=== PATIENT | female | born 1985 | race Caucasian/White ===

== ENCOUNTER → 2017-09-06 | Outpatient (CLI) | payer BC ==
[~2017-09-06] MED LIST: ASCO500C3 PO; BCPILLS PO; IBUP-1050 PO; MTR600X PO; PRENTAB26 PO
[2017-09-06 16:42] LABS: HEMATOCRIT 40.5 % (37-47); MEAN CELL VOLUME 93.1 fL (80-100); MEAN CORPUSCULAR HEMOGLOBIN 31.5 pg (25-34); MEAN CORPUSCULAR HGB CONC 33.8 g/dl (32-36); MEAN PLATELET VOLUME 10.3 fL (7.4-10.4); PLATELET COUNT 203 K/uL (130-400); RED BLOOD COUNT 4.35 M/uL (4.2-5.4); WHITE BLOOD COUNT 8.17 K/uL (4.8-10.8)
== END | disposition home or self-care (01) ==
LOC: C.LAB 15:27
PROVIDERS: ATTEND Obstetrics & Gynecology
DX: Z01.818 Encounter for other preprocedural examination (principal)

== ENCOUNTER 2017-09-10 05:28 | Day surgery (SDC) | payer BC ==
[2017-09-09 14:09] VITALS: BMI 31.0
[~2017-09-10] VITALS: Ht 165.1 cm; Wt 86.4 kg
[~2017-09-10 05:28] MED LIST changes: -ASCO500C3 PO; -BCPILLS PO; -IBUP-1050 PO; -MTR600X PO
[2017-09-10 05:49] VITALS: BP 114/60; PULSE 75; TEMP 36.9; O2SAT 95; Ht 165.1 cm; Wt 86.4 kg
[2017-09-10] MEDS ORDERED: LACTATED RINGER'S 1000ML 1,000 ML IV SCH ×2 (06:00→06:30)
[2017-09-10] MEDS ORDERED: EpHEDrine SULFATE INJ 50 MG/ML AMP IV PRN (06:45)
[2017-09-10] MEDS ORDERED: FENTANYL CITRATE INJ 50 MCG/1 ML 2 ML VIAL IV PRN (06:45)
[2017-09-10] MEDS ORDERED: PROMETHAZINE HCL INJ 12.5 MG in SODIUM CHLORIDE 0.9% 50ML 50 ML IV PRN (06:45)
[2017-09-10] MEDS ORDERED: ONDANSETRON INJ 2 MG/ML 2 ML VIAL IV PRN ×2 (06:45→08:00)
[2017-09-10] MEDS ORDERED: HYDROmorphone INJ 1 MG/ML SYR IV PRN (06:45)
[2017-09-10] MEDS ORDERED: ATROPINE SULFATE 0.1 MG/ML 5ML SYR IV PRN (06:45)
[2017-09-10] MEDS ORDERED: FENTANYL CITRATE INJ 50 MCG/1 ML 2 ML VIAL ONE (06:48)
[2017-09-10] MEDS ORDERED: KETOROLAC TROMETHAMINE 30 MG/ML VIAL ONE (06:48)
[2017-09-10] MEDS ORDERED: DEXAMETHASONE SOD INJ 4 MG/ML VIAL ONE (06:48)
[2017-09-10] MEDS ORDERED: LIDOCAINE HCL 2% 2 ML VIAL (20MG/ML) ONE (06:48)
[2017-09-10] MEDS ORDERED: PROPOFOL IV EMULSION 10 MG/ML 20 ML VIAL IV ONE (06:48)
[2017-09-10] MEDS ORDERED: ONDANSETRON INJ 2 MG/ML 2 ML VIAL ONE ×2 (06:48→07:36)
[2017-09-10] MEDS ORDERED: MIDAZOLAM HCL 1 MG/ML 2ML VIAL ONE (06:48)
[2017-09-10] MEDS ORDERED: METHYLERGONOVINE MALEATE 0.2 MG/ML AMP ONE (06:58)
[2017-09-10] MEDS ORDERED: SILVER NITR/POTASSIUM NITRATE 10 APPLICATOR PACK ONE (07:04)
--- NOTE | 2017-09-10 07:14 | History & Physical Bridge Note ---
H&P Re-Evaluation Bridge Note: I have examined the patient, reviewed the History & Physical and in the interval since the performance of the History & Physical I have noted the following changes of clinical significance: No changes noted
[2017-09-10] MEDS ORDERED: MTR600X PO (07:51)
[2017-09-10] MEDS ORDERED: OXYTOCIN INJ 10 UNITS/ML VIAL ONE (07:53)
--- NOTE | 2017-09-10 07:53 | Discharge Instructions ---
Discharge Instructions Date of Service Sep 10, 2017. Admission Reason for Admission: Missed After 6+ Weeks Discharge Discharge Diagnosis / Problem: missed Discharge Goals Goal(s): Routine recovery after surgery Activity Recommendations Activity Limitations: as noted below Lifting Limitations: no more than 10 pounds Exercise/Sports Limitations: gradually increase as tolerated May Resume Sexual Activity: after follow-up appointment Shower/Bathe: no limitations Driving or Machine Use: resume 1 day after discharge . Instructions / Follow-Up Instructions / Follow-Up ACTIVITY RECOMMENDATIONS: * Avoid tampons, douching, hot tubs, pools, and intercourse until bleeding has stopped. * May shower as usual. * No strenuous activity for 24-48 hours. After 24-48 hours, you may do anything you feel like doing (driving and sports are okay). SPECIAL CARE INSTRUCTIONS: Special Diet: * Mild nausea may occur in the immediate post-operative period. * Take clear liquids such as tea, cola or bouillon until all nausea has subsided; you may then resume your normal diet. Special Care: * Light bleeding and vaginal spotting can last from a few days to 3-4 weeks. Call your doctor if bleeding becomes heavier than the heaviest part of your period. * Check your temperature twice a day for one week. If it goes above 100.4 degrees Fahrenheit (38.0 Celsius), notify your doctor. * Call your doctor's office for an appointment for 6 weeks after your surgery. FOLLOW-UP VISIT: Call your doctor's office for an appointment for 6 weeks after your surgery. Current Hospital Diet Patient's current hospital diet: Discharge Diet Recommended Diet: Regular Diet Procedures Procedures Performed: Dilation and Evacuation of Uterus Pending Studies Studies pending at discharge: no Medical Emergencies . Who to Call and When: Medical Emergencies: If at any time you feel your situation is an emergency, please call 911 immediately. . Non-Emergent Contact Non-Emergency issues call your: Primary Care Provider . . "Provider Documentation" section prepared by Blanco Oropeza. . VTE Core Measure Inpt VTE Proph given/why not?: Treatment not indicated
[2017-09-10] MEDS ORDERED: SODIUM CHLORIDE 0.9% 1000ML 1,000 ML IV SCH (07:55)
--- NOTE | 2017-09-10 07:55 | [facility] Post Operative Brief Note ---
Immediate Operative Summary Operative Date Sep 10, 2017. Pre-Operative Diagnosis missed Post-Operative Diagnosis missed Procedure(s) Performed Dilation and Evacuation of Uterus Surgeon Dr. Oropeza Hardwood Floor Installer Surgeon(s) none Estimated Blood Loss 25mL Findings POC's Fluids (cc crystalloids) LR 900 ml. Specimens A: products of conception Drains none Anesthesia LMA Complication(s) None Disposition Recovery Room / PACU
[2017-09-10] MEDS ORDERED: KETOROLAC TROMETHAMINE 30 MG/ML VIAL IV. PRN (08:00)
[2017-09-10] MEDS ORDERED: OXYCODONE/ACETAMINOPHEN 5-325 TAB PO PRN (08:00)
[2017-09-10] MEDS ORDERED: IBUPROFEN 600 MG TAB PO PRN (08:00)
[2017-09-10] MEDS ORDERED: MoRPHine SULFATE 2 MG/ML CARP IV PRN (08:00)
[2017-09-10] MEDS ORDERED: HYDROCODONE/ACETAMOPHEN 5/325MG TAB PO PRN (08:00)
--- NOTE | 2017-09-10 08:30 | Anesthesiology Progress Note ---
Anesthesia Post Op Note Date & Time Sep 10, 2017 at 08:30 Vital Signs Pain Intensity: 0 Vital Signs Past 12 Hours Date Time Temp Pulse Resp B/P (MAP) Pulse Ox O2 Delivery O2 Flow Rate FiO2 09/10/17 08:25 59 15 09/10/17 08:25 59 15 110/67 97 09/10/17 08:20 61 15 09/10/17 08:20 57 15 114/61 96 09/10/17 08:15 55 15 09/10/17 08:15 55 15 106/60 97 09/10/17 08:10 59 14 09/10/17 08:10 58 14 110/59 95 09/10/17 08:05 63 15 09/10/17 08:05 62 15 111/61 96 09/10/17 08:00 81 15 09/10/17 08:00 81 15 116/64 95 09/10/17 07:55 100 19 09/10/17 07:55 101 19 134/77 99 09/10/17 07:50 104 16 125/58 97 09/10/17 07:50 105 16 09/10/17 07:50 37.3 95 14 125/58 97 Oxymask 10 09/10/17 05:49 36.9 75 16 114/60 (78) 95 Room Air Notes Mental Status: alert / awake / arousable, participated in evaluation Pt Amnestic to Procedure: Yes Nausea / Vomiting: adequately controlled Pain: adequately controlled Airway Patency, RR, SpO2: stable & adequate BP & HR: stable & adequate Hydration State: stable & adequate Anesthetic Complications: no major complications apparent
--- NOTE | 2017-09-10 08:38 | OPERATIVE REPORT ---
DATE OF OPERATION: 09/10/2017 PREOPERATIVE DIAGNOSIS: Missed . POSTOPERATIVE DIAGNOSIS: Same. PROCEDURE: D&E. SURGEON: Dr. Oropeza. STAVE BLOCK SPLITTER: None. ANESTHESIA: LMA anesthesia. COMPLICATIONS: None. FINDINGS: Products of conception. CLINICAL HISTORY: The patient is a 31-year-old white female 1, para 0 at 12 weeks by dates approximately 6+ weeks by ultrasound with a missed diagnosed with no heart tones. The patient was consented for D&E in the office by Dr. Rendon. The patient was seen this morning consent was obtained. Time out was called prior to the start of the procedure. OPERATION AND FINDINGS: DESCRIPTION OF PROCEDURE: After satisfactory general LMA anesthesia, the patient was prepped and draped in usual sterile fashion. Red rubber catheter was then used to empty the bladder of approximately 200 mL of clear urine. Exam under anesthesia revealed the uterus to be retroverted approximately 10 week's size. Uterus was sounded to 10 cm. After a weighted speculum was placed into the posterior vault of the vagina single tooth tenaculum was placed on the anterior lip of the cervix. The cervix was then progressively dilated with Hegar dilators. A #8 curved curet was inserted into the uterine cavity curetting and suctioning out products of conception. At the end of this procedure, the sharp endometrial curet was introduced curetting out minimal amounts of tissue. The EBL was 25 mL. No active bleeding was noted. Pitocin was started in the IV bag after the procedure. All remaining instruments were removed. Final sponge, needle and instrument count were found to be correct. The patient was then placed supine on a stretcher. EBL 25 mL. She was taken to recovery room in stable condition where she will be discharged later as an outpatient. I attest to the content of the Intraoperative Record and any orders documented therein. Any exception s are noted below.
[2017-09-10 08:40] VITALS: BP 123/72; PULSE 64; TEMP 37.2; O2SAT 97
[2017-09-10 09:00] VITALS: BP 117/64; PULSE 70; O2SAT 100
== END 2017-09-10 09:22 | disposition home or self-care (01) ==
LOC: C.ACU 05:28
PROVIDERS: ATTEND Obstetrics & Gynecology
DX: O02.1 Missed abortion (principal); Z88.1 Allergy status to other antibiotic agents; Z83.3 Family history of diabetes mellitus; Z68.32 Body mass index [BMI] 32.0-32.9, adult; E66.9 Obesity, unspecified

== ENCOUNTER 2019-07-10 11:44 | Inpatient (IN) ==
[2019-07-10] MEDS ORDERED: OXYTOCIN 30 UNITS/500 ML BAG IV PRN (12:55)
[2019-07-10] MEDS ORDERED: PENICILLIN G POTASSIUM 6 MU in DEXTROSE 5% 250 ML IV ONE (13:15)
[2019-07-10] MEDS ORDERED: ONDANSETRON INJ 2 MG/ML 2 ML VIAL IV PRN (13:17)
[2019-07-10] MEDS ORDERED: BUTORPHANOL TARTRATE 1 MG/ML VIAL IV PRN (13:17)
[2019-07-10 13:23] LABS: Hematocrit (blood only) 33.7 % (37-47); Hemoglobin 11.7 g/dL (12.0-16.0); Mean Corpuscular Volume 91.6 fL (80-100); Mean Platelet Volume 10.4 fL (7.4-10.4); Platelet Count 166 K/uL (130-400); RDW Coefficient of Variation 13.4 % (11.5-14.5); RDW Standard Deviation 44.5 fL (36.4-46.3); Red Blood Count 3.68 M/uL (4.2-5.4); White Blood Count 13.77 K/uL (4.8-10.8)
[2019-07-10 13:41] LABS: Mean Corpuscular Hgb Conc 34.7 g/dL (32-36)
--- NOTE | 2019-07-10 14:33 | History & Physical Report ---
Date of Service July 10, 2019 Assessment & Plan (1) premature rupture of membranes (PPROM) with unknown onset of labor: 33 yo at 35.1 wks with PPROM, not in labor, FHR reassuring, GBS unknown VSS Afebrile Contractions + GBS collected Plan to observe, monitor, PCN, desires expectant management for now, then induction of labor if no cervical change All questions were answered History of Present Illness Chief Complaint: Patient is a 33 yo at 35.1 wks who has been feeling LOF/ gushes since 10 am It has malvin clear No VB Irregular ctxs, getting more painful Pain is 4/10 No fever/ chills/ CORTEZ/ Change in vision/ N&V +FM Her has been complicated by 1) GDMA1: diagnosed 2 weeks ago, normal FS 2) Polyhydramnios, LGA, 7 lb 14 oz last week 3) Recurrent SAB 4) PPROM 5) Unknown GBS Primary Care Provider: Jaswant Taylor MD Allergies Allergy/AdvReac Type Severity Reaction Status Date / Time amoxicillin AdvReac Unknown nausea/vomi Verified 07/10/19 11:48 ting Home Medications Home Medications Medication Instructions Recorded Confirmed Type [id number] oil 2 tabs PO DAILY #0 tab 09/09/17 07/10/19 History [ Gummy] ascorbic acid (vitamin C) [Vitamin 500 mg PO DAILY 12/01/18 07/10/19 History C] docusate sodium [Colace] 100 mg PO BID 07/10/19 07/10/19 History magnesium hydroxide [Milk of 5 ml PO HS PRN 07/10/19 07/10/19 History Magnesia] Patient History Medical History Gestational diabetes Endometritis (Acute) Finished antibiotics 11/22/18 History of rectal bleeding (Acute) Irritable bowel syndrome (IBS) (Acute) Pseudotumor cerebri (Acute) Miscarriage within last 12 months Surgical History History of colonoscopy (Acute) History of dilation and curettage (Acute) D&E x2 in past year Social History Preferred Language: Bolivian Communication Ability: Effective Life Skills Trainer Required: No Beliefs That Will Affect Care: None marital status: Single Current Living Situation: Significant Other Current Living Situation Comment: fiance Other Information That Helps Us Care for You: No Feels Safe at Home: Yes Safety Concerns: Feels Safe At This Time Smoking Status: Never smoker Second Hand Exposure: Yes (occasional- once weekly) ; Hx Alcohol Use: No Hx Substance Use: No OB History 4 SAB, 2 D&C FRAUD EXAMINER History No h/o STD's Review of Systems All systems reviewed & are unremarkable except as noted in HPI & below Physical Exam Constitutional: WD/WN, vitals as above well developed and well nourished Comfortable Gastrointestinal (Abdomen): Abd: soft, NT, Gravid Bed side US: Vertex, FHR 150'S, FM's and breathing seen Genitourinary: SSE: pooling in vagina, grossly ruptured, nitrazine + Cervix: ft, 50%/ -4, ballotable Results & Data Vital Signs (Past 12 Hours) Vital Signs Temp Resp 07/10/19 13:44 36.9 C 07/10/19 12:12 37.1 C 20 Code Status & VTE Plan VTE Prophylaxis Plan VTE Prophylaxis will be ordered: Yes Monitoring External Monitor Categ I Tocodynamometer Irregular ctxs q2-5 min
[2019-07-10] MEDS: LACTATED RINGER'S 1,000 ML IV PRN ×2 (14:41→23:41)
[2019-07-10] MEDS ORDERED: DINOPROSTONE 10 MG INSERT PV ONE (16:14)
--- NOTE | 2019-07-10 16:16 | Obstetrical Progress Note ---
Date of Service July 10, 2019 Subjective Patient is reevaluated She feels back pain, not much abdominal pain, not sure ctxs +LOF, clear +FM VE; tight 1 cm/ 50%/ -4, posterior FHR categ I [place]: irregular ctxs Discussed IOL/ Augmentation of ctxs Discussed pitocin vs po cytotec vs cervidil Plan Cervidil for cervical ripening/ IOL SCD's for DVRT prevention Continue to monitor Results & Data Vital Signs (Past 12 Hours) Vital Signs Temp Pulse Resp BP 07/10/19 15:00 103 H 115/59 L 07/10/19 14:59 36.8 C 20 07/10/19 13:44 36.9 C 07/10/19 12:12 37.1 C 20 124/68
[2019-07-10] MEDS: PENICILLIN G POTASSIUM 3 MU in DEXTROSE 5% 100 ML IV PRN ×2 (18:41→22:37)
[2019-07-11] MEDS ORDERED: OXYTOCIN 30 UNITS/500 ML BAG IV PRN (00:08)
--- NOTE | 2019-07-11 00:11 | Obstetrical Progress Note ---
Date of Service July 11, 2019 Subjective Patient is reevaluated Cervidil came out about an hour ago She did not have much ctxs with that Still leaking abundant amount if clear fluids +FM's VSS Afebrile FHR categ I VE; unchanged, 1 cm/ 50%/ -4, posterior Plan for pitocin, discussed pain management, Stadol and epidural as needed All questions were answered Results & Data Vital Signs (Past 12 Hours) Vital Signs Temp Pulse Resp BP 07/10/19 23:09 36.8 C 86 18 118/56 L 07/10/19 23:06 36.8 C 86 18 118/56 L 07/10/19 19:37 114 H 111/63 07/10/19 19:15 36.8 C 07/10/19 17:40 36.8 C 07/10/19 15:00 103 H 115/59 L 07/10/19 14:59 36.8 C 20 07/10/19 13:44 36.9 C 07/10/19 12:12 37.1 C 20 124/68
[2019-07-11] MEDS: PENICILLIN G POTASSIUM 3 MU in DEXTROSE 5% 100 ML IV PRN ×3 (02:34→10:32)
[2019-07-11] MEDS ORDERED: BUPIVACAINE 0.25% 30 ML VIAL ONE (07:20)
[2019-07-11] MEDS ORDERED: ePHEDrine sulfate 50 MG/ML AMP ONE (07:20)
[2019-07-11] MEDS ORDERED: fentaNYL 2MCG/ML ROPIV 1.25MG/ML 100 ML BAG EPI ONE (07:21)
[2019-07-11] MEDS ORDERED: fentaNYL citrate 100 MCG/2 ML VIAL ONE (07:21)
[2019-07-11] MEDS: LACTATED RINGER'S 1,000 ML IV PRN ×2 (08:24→13:40)
--- NOTE | 2019-07-11 08:54 | Anesthesiology Consultation ---
Date of Service July 11, 2019 Assessment & Plan (1) Encounter for pre-operative examination: Chart Review Chart Review: Patient NOT seen in Pre Admission Testing and Acceptable Risk for Labor Epidural Consults Requested none ASA ASA3 Proposed Anesthesia Anesthesia Type: CSE History Height/Weight Height: 5 ft 5 in Weight: 102.058 kg Allergies Allergy/AdvReac Type Severity Reaction Status Date / Time amoxicillin AdvReac Unknown nausea/vomi Verified 07/10/19 11:48 ting Medications Home Medications Medication Instructions Recorded Confirmed Last Taken [id number] oil 2 tabs PO DAILY #0 tab 09/09/17 07/10/19 07/09/19 22:00 [ Gummy] ascorbic acid (vitamin C) [Vitamin 500 mg PO DAILY 12/01/18 07/10/19 07/09/19 22:00 C] docusate sodium [Colace] 100 mg PO BID 07/10/19 07/10/19 07/08/19 22:00 magnesium hydroxide [Milk of 5 ml PO HS PRN 07/10/19 07/10/19 Unknown Magnesia] Active Medications Generic Name Dose Route Start Last Admin Trade Name Freq PRN Reason Stop Dose Admin Butorphanol Tartrate 1 mg 07/10/19 13:17 07/11/19 03:58 Stadol IV 08/09/19 13:16 1 mg Q3HWA PRN Administration Pain Lactated Ringer's 1,000 mls @ 150 mls/hr 07/10/19 12:55 07/11/19 08:24 Lr IV 07/12/19 12:54 999 mls/hr .Q6H40M PRN Administration L&D Protocol Protocol Penicillin G Potassium 3 mu/ 106 mls @ 100 mls/hr 07/10/19 12:55 07/11/19 06:34 Dextrose IV 07/20/19 12:54 100 mls/hr Q4H PRN Administration Give until delivery Oxytocin 30 units in 500 mls @ 6 mls/hr 07/11/19 00:08 07/11/19 07:08 Pitocin IV 07/13/19 00:07 0.36 units/hr .Q24H PRN 6 mls/hr Labor Induction/Augmentation Titration Protocol 0.36 UNITS/HR Past Medical History Medical History Gestational diabetes Endometritis (Acute) Finished antibiotics 11/22/18 History of rectal bleeding (Acute) Irritable bowel syndrome (IBS) (Acute) Pseudotumor cerebri (Acute) Miscarriage within last 12 months Past Surgical History Surgical History History of colonoscopy (Acute) History of dilation and curettage (Acute) D&E x2 in past year Social History Smoking Status: Never smoker Hx Alcohol Use: No Alcohol type: beer alcohol intake frequency: a few times a month Hx Substance Use: No Physical Exam Vital Signs Last Vital Signs Temp 36.8 C 07/11/19 07:15 Pulse 87 07/11/19 08:48 Resp 18 07/11/19 07:15 BP 104/53 L 07/11/19 08:48 Pulse Ox 97 07/11/19 08:47 Testing Laboratory Results 07/10/19 13:07 07/10/19 23:22 POC Glucose 76
[2019-07-11] MEDS ORDERED: NALBUPHINE HCL INJ 10 MG/ML AMP IV PRN ×2 (08:57→16:50)
[2019-07-11] MEDS ORDERED: fentaNYL 2MCG/ML ROPIV 1.25MG/ML 100 ML BAG EPI PRN (08:57)
[2019-07-11] MEDS ORDERED: ePHEDrine sulfate 50 MG/ML AMP IV PRN ×2 (08:57→16:50)
[2019-07-11] MEDS ORDERED: NALOXONE HCL 1 MG in SODIUM CHLORIDE 0.9% 1000ML 1,000 ML IV PRN ×2 (08:57→16:50)
[2019-07-11] MEDS ORDERED: DiphenhydrAMINE HCL 50 MG/ML VIAL IV PRN ×3 (08:57→16:50)
[2019-07-11] MEDS ORDERED: NALOXONE HCL 0.4 MG/1 ML VIAL/CARP IV PRN ×2 (08:57→16:50)
[2019-07-11] MEDS ORDERED: ONDANSETRON INJ 2 MG/ML 2 ML VIAL IV PRN ×2 (08:57→16:21)
--- NOTE | 2019-07-11 10:41 | Obstetrical Progress Note ---
Date of Service July 11, [address] Physical Exam Genitourinary: Manual OB Exam: + cervical dilation 1 cm, + cervical effacement 50%, + station high and + amniotic fluid clear OB Exam Monitor Tracing: + external FHT monitor used, + external uterine monitor used and + category I vertex not engaged Will continue Oxytocin Results & Data Vital Signs (Past 12 Hours) Vital Signs Temp Pulse Resp BP Pulse Ox 07/11/19 10:37 90 98 07/11/19 10:32 83 98 07/11/19 10:30 90 115/56 L 07/11/19 10:27 95 H 97 07/11/19 10:23 89 94 07/11/19 10:22 87 95 07/11/19 10:17 88 95 07/11/19 10:15 89 116/53 L 07/11/19 10:12 88 96 07/11/19 10:07 82 98 07/11/19 10:02 85 97 07/11/19 10:00 78 113/54 L 07/11/19 09:57 77 98 07/11/19 09:52 84 97 07/11/19 09:47 86 98 07/11/19 09:46 83 16 114/53 L 07/11/19 09:42 85 98 07/11/19 09:37 85 99 07/11/19 09:32 95 H 98 07/11/19 09:27 94 H 98 07/11/19 09:26 87 126/63 07/11/19 09:22 94 H 97 07/11/19 09:17 93 H 96 07/11/19 09:16 92 H 16 120/52 L 07/11/19 09:12 86 121/62 97 07/11/19 09:08 81 126/58 L 07/11/19 09:07 77 98 07/11/19 09:02 88 98 07/11/19 09:00 88 18 116/56 L 07/11/19 08:58 84 18 127/59 L 07/11/19 08:57 88 98 07/11/19 08:56 86 121/56 L 07/11/19 08:55 36.9 C 18 07/11/19 08:53 85 18 115/57 L 07/11/19 08:52 79 99 07/11/19 08:48 87 18 104/53 L 07/11/19 08:47 77 97 07/11/19 08:46 78 18 112/55 L 07/11/19 08:44 84 18 119/58 L 07/11/19 08:42 80 98 07/11/19 08:37 89 98 07/11/19 08:34 93 H 18 123/59 L 07/11/19 08:32 100 H 18 147/74 H 99 07/11/19 08:27 107 H 99 07/11/19 08:22 97 H 100 07/11/19 08:17 88 99 07/11/19 08:12 90 98 07/11/19 08:07 85 99 07/11/19 08:02 86 98 07/11/19 07:57 97 H 99 07/11/19 07:48 88 98 07/11/19 07:47 93 H 18 122/64 07/11/19 07:43 84 99 07/11/19 07:38 84 99 07/11/19 07:33 96 H 98 07/11/19 07:32 93 H 123/69 07/11/19 07:15 36.8 C 18 07/11/19 05:48 86 118/65 07/11/19 05:30 36.5 C 18 07/11/19 04:48 85 114/62 07/11/19 03:47 91 H 124/59 L 07/11/19 03:10 36.9 C 18 07/11/19 01:47 96 H 108/58 L 07/11/19 00:47 36.8 C 89 18 119/60 07/10/19 23:09 36.8 C 86 18 118/56 L 07/10/19 23:06 36.8 C 86 18 118/56 L
[2019-07-11] MEDS ORDERED: LACTATED RINGER'S 1,000 ML IV SCH ×3 (14:30→16:30)
[2019-07-11] MEDS ORDERED: CITRIC ACID/SODIUM CITRATE 15 ML UDC ONE (14:31)
--- NOTE | 2019-07-11 14:39 | Obstetrical Progress Note ---
Date of Service July 11, 2019 Subjective Patient re-examined She has not made any progress despite being on Oxytocin. Has been ruptured now for over 28 hours and baby is still not engaged. Cervix remains 1/50/-3. FHT Cat 1. Will proceed with primary for failure to progress and suspect macrosomia. discussed with patient and she is in agreement. Consents signed. Results & Data Vital Signs (Past 12 Hours) Vital Signs Temp Pulse Resp BP Pulse Ox 07/11/19 14:32 104 H 99 07/11/19 14:27 94 H 99 07/11/19 14:22 103 H 98 07/11/19 14:17 106 H 98 07/11/19 14:15 100 H 121/55 L 07/11/19 14:12 100 H 98 07/11/19 14:07 84 95 07/11/19 14:02 93 H 97 07/11/19 14:00 90 106/58 L 07/11/19 13:57 86 96 07/11/19 13:52 89 96 07/11/19 13:47 91 H 96 07/11/19 13:45 84 116/53 L 07/11/19 13:42 89 96 07/11/19 13:37 86 96 07/11/19 13:32 91 H 96 07/11/19 13:31 87 110/51 L 07/11/19 13:27 87 96 07/11/19 13:22 88 96 07/11/19 13:17 93 H 97 07/11/19 13:12 95 H 97 07/11/19 13:07 96 H 97 07/11/19 13:02 92 H 98 07/11/19 13:01 96 H 129/61 07/11/19 13:00 36.8 C 16 07/11/19 12:57 98 H 98 07/11/19 12:52 95 H 97 07/11/19 12:47 101 H 98 07/11/19 12:46 92 H 120/60 07/11/19 12:42 89 98 07/11/19 12:37 102 H 98 07/11/19 12:32 105 H 97 07/11/19 12:30 95 H 143/66 H 07/11/19 12:27 96 H 98 07/11/19 12:22 95 H 99 07/11/19 12:17 107 H 98 07/11/19 12:15 96 H 144/78 H 07/11/19 12:12 101 H 98 07/11/19 12:07 91 H 99 07/11/19 12:02 97 H 99 07/11/19 12:00 98 H 130/60 07/11/19 11:57 96 H 97 07/11/19 11:52 94 H 97 07/11/19 11:47 96 H 98 07/11/19 11:45 93 H 130/59 L 07/11/19 11:42 105 H 99 07/11/19 11:37 108 H 98 07/11/19 11:32 98 H 99 07/11/19 11:31 86 16 119/59 L 07/11/19 11:27 96 H 98 07/11/19 11:25 16 07/11/19 11:22 87 98 07/11/19 11:17 90 98 07/11/19 11:16 83 112/65 07/11/19 11:12 91 H 99 07/11/19 11:07 93 H 99 07/11/19 11:02 87 99 07/11/19 11:01 81 16 119/62 07/11/19 10:57 36.8 C 90 18 99 07/11/19 10:52 94 H 96 07/11/19 10:47 92 H 98 07/11/19 10:46 85 103/57 L 07/11/19 10:42 90 95 07/11/19 10:37 90 98 07/11/19 10:32 83 98 07/11/19 10:30 90 115/56 L 07/11/19 10:27 95 H 97 07/11/19 10:23 89 94 07/11/19 10:22 87 95 07/11/19 10:17 88 95 07/11/19 10:15 89 116/53 L 07/11/19 10:12 88 96 07/11/19 10:07 82 98 07/11/19 10:02 85 97 07/11/19 10:00 78 113/54 L 07/11/19 09:57 77 98 07/11/19 09:52 84 97 07/11/19 09:47 86 98 07/11/19 09:46 83 16 114/53 L 07/11/19 09:42 85 98 07/11/19 09:37 85 99 07/11/19 09:32 95 H 98 07/11/19 09:27 94 H 98 07/11/19 09:26 87 126/63 07/11/19 09:22 94 H 97 07/11/19 09:17 93 H 96 07/11/19 09:16 92 H 16 120/52 L 07/11/19 09:12 86 121/62 97 07/11/19 09:08 81 126/58 L 07/11/19 09:07 77 98 07/11/19 09:02 88 98 07/11/19 09:00 88 18 116/56 L 07/11/19 08:58 84 18 127/59 L 07/11/19 08:57 88 98 07/11/19 08:56 86 121/56 L 07/11/19 08:55 36.9 C 18 07/11/19 08:53 85 18 115/57 L 07/11/19 08:52 79 99 07/11/19 08:48 87 18 104/53 L 07/11/19 08:47 77 97 07/11/19 08:46 78 18 112/55 L 07/11/19 08:44 84 18 119/58 L 07/11/19 08:42 80 98 07/11/19 08:37 89 98 07/11/19 08:34 93 H 18 123/59 L 07/11/19 08:32 100 H 18 147/74 H 99 07/11/19 08:27 107 H 99 07/11/19 08:22 97 H 100 07/11/19 08:17 88 99 07/11/19 08:12 90 98 07/11/19 08:07 85 99 07/11/19 08:02 86 98 07/11/19 07:57 97 H 99 07/11/19 07:48 88 98 07/11/19 07:47 93 H 18 122/64 07/11/19 07:43 84 99 07/11/19 07:38 84 99 07/11/19 07:33 96 H 98 07/11/19 07:32 93 H 123/69 07/11/19 07:15 36.8 C 18 07/11/19 05:48 86 118/65 07/11/19 05:30 36.5 C 18 07/11/19 04:48 85 114/62 07/11/19 03:47 91 H 124/59 L 07/11/19 03:10 36.9 C 18
[2019-07-11] MEDS ORDERED: CEFAZOLIN 3000MG 65 ML IV SCH (14:45)
[2019-07-11] MEDS ORDERED: MoRPHine SULFATE PF 1 MG/ML 10 ML AMP/VIAL ONE (14:53)
[2019-07-11 14:54] LABS: Basophils # (auto) 0.01 K/uL (0-0.2); Basophils % (auto) 0.1 %; Eosinophils # (auto) 0.05 K/uL (0-0.5); Eosinophils % (auto) 0.4 %; Hematocrit (blood only) 31.4 % (37-47); Hemoglobin 10.4 g/dL (12.0-16.0); Immature Granulocytes # (auto) 0.07 K/uL (0.00-0.02); Immature Granulocytes % (auto) 0.5 %; Lymphocytes # (auto) 1.44 K/uL (1.2-3.4); Lymphocytes % (auto) 10.3 %; Mean Corpuscular Volume 93.2 fL (80-100); Mean Platelet Volume 10.3 fL (7.4-10.4); Monocytes # (auto) 1.09 K/uL (0.11-0.59); Monocytes % (auto) 7.8 %; Neutrophils # (auto) 11.32 K/uL (1.4-6.5); Neutrophils % (auto) 80.9 %; Platelet Count 150 K/uL (130-400); RDW Coefficient of Variation 13.5 % (11.5-14.5); RDW Standard Deviation 45.8 fL (36.4-46.3); Red Blood Count 3.37 M/uL (4.2-5.4); White Blood Count 13.98 K/uL (4.8-10.8)
[2019-07-11] MEDS ORDERED: LIDOCAINE HCL 2% MPF (LOCAL) 5 ML VIAL INFIL ONE (14:56)
[2019-07-11 15:07] LABS: Mean Corpuscular Hgb Conc 33.1 g/dL (32-36)
--- NOTE | 2019-07-11 16:07 | History & Physical Bridge Note ---
Date of Service July 11, 2019 History & Physical Bridge Note I have examined the patient, reviewed the History & Physical and in the interval since the performance of the History & Physical I have noted the following changes of clinical significance: no changes noted
--- NOTE | 2019-07-11 16:09 | Post Operative Brief Note ---
Immediate Post Op Note v1 Date of Surgery July 11, 2019 Pre & Post Diagnosis Operation Date: 07/11/19 14:35 Pre-Op Diagnosis: Primary Section for failure to progress, premature prolonged rupture of membranes, and suspected macrosomia. Post-Op Diagnosis: Same as Preop Procedure Operation Date: 07/11/19 14:35 Actual Procedures p Section in LD by Dr Oropeza for live female at 1527 - Blanco Oropeza MD Surgeon Blanco Oropeza MD Preschool Associate Teacher Angelica Garcia RN Estimated Blood Loss 400 Findings Consistent with Post-Op Diagnosis Drains Giraldo Catheter (Giraldo catheter inserted prior to procedure, draining clear yellow urine, and being monitored by anesthesia during procedure.)
[2019-07-11] MEDS ORDERED: PROMETHAZINE HCL 25 MG in SODIUM CHLORIDE 0.9% 50 ML IV PRN (16:21)
[2019-07-11] MEDS ORDERED: MEASLES, MUMPS & RUBELLA VIRUS VIAL SQ ONE (16:21)
[2019-07-11] MEDS ORDERED: HYDROCORTISONE ACETATE 25 MG SUPP PR PRN (16:21)
[2019-07-11] MEDS ORDERED: SENNA 8.6 MG TAB PO PRN (16:21)
[2019-07-11] MEDS ORDERED: KETOROLAC 30 MG/ML VIAL IV PRN (16:21)
[2019-07-11] MEDS ORDERED: BENZOCAINE 20% AER SPR 82.5 GM CAN EXT PRN (16:21)
[2019-07-11] MEDS ORDERED: MAGNESIUM HYDROXIDE SUSP 30 ML UDC PO PRN ×2 (16:21→16:54)
[2019-07-11] MEDS ORDERED: DIPHTHERIA/TETANUS/PERTUSSIS 0.5 ML SYR/VIAL IM ONE (16:21)
[2019-07-11] MEDS ORDERED: SUPERCREAM 0.870% 15 GM JAR EXT PRN (16:21)
--- NOTE | 2019-07-11 16:29 | Anesthesiology Progress Note ---
Date of Service July 11, 2019 Anesthesia Post Procedure Vital Signs Vital Signs: Temp Pulse Resp BP Pulse Ox 07/11/19 16:24 82 113/58 L 07/11/19 16:20 87 98 07/11/19 16:17 83 112/58 L 07/11/19 16:15 85 98 07/11/19 15:08 100 H 120/63 07/11/19 15:07 95 H 99 07/11/19 15:03 103 H 119/59 L 07/11/19 15:02 100 H 98 07/11/19 15:00 37.0 C 97 H 18 129/70 07/11/19 14:57 101 H 100 07/11/19 14:52 101 H 98 07/11/19 14:47 109 H 100 07/11/19 14:46 98 H 139/74 07/11/19 14:42 97 H 99 07/11/19 14:37 102 H 99 07/11/19 14:32 104 H 99 07/11/19 14:27 94 H 99 07/11/19 14:22 103 H 98 07/11/19 14:17 106 H 98 07/11/19 14:15 100 H 121/55 L 07/11/19 14:12 100 H 98 07/11/19 14:07 84 95 07/11/19 14:02 93 H 97 07/11/19 14:00 90 106/58 L 07/11/19 13:57 86 96 07/11/19 13:52 89 96 07/11/19 13:47 91 H 96 07/11/19 13:45 84 116/53 L 07/11/19 13:42 89 96 07/11/19 13:37 86 96 07/11/19 13:32 91 H 96 07/11/19 13:31 87 110/51 L 07/11/19 13:27 87 96 07/11/19 13:22 88 96 07/11/19 13:17 93 H 97 07/11/19 13:12 95 H 97 07/11/19 13:07 96 H 97 07/11/19 13:02 92 H 98 07/11/19 13:01 96 H 129/61 07/11/19 13:00 36.8 C 16 07/11/19 12:57 98 H 98 07/11/19 12:52 95 H 97 07/11/19 12:47 101 H 98 07/11/19 12:46 92 H 120/60 07/11/19 12:42 89 98 07/11/19 12:37 102 H 98 07/11/19 12:32 105 H 97 07/11/19 12:30 95 H 143/66 H 07/11/19 12:27 96 H 98 07/11/19 12:22 95 H 99 07/11/19 12:17 107 H 98 07/11/19 12:15 96 H 144/78 H 07/11/19 12:12 101 H 98 07/11/19 12:07 91 H 99 07/11/19 12:02 97 H 99 07/11/19 12:00 98 H 130/60 07/11/19 11:57 96 H 97 07/11/19 11:52 94 H 97 07/11/19 11:47 96 H 98 07/11/19 11:45 93 H 130/59 L 07/11/19 11:42 105 H 99 07/11/19 11:37 108 H 98 07/11/19 11:32 98 H 99 07/11/19 11:31 86 16 119/59 L 07/11/19 11:27 96 H 98 07/11/19 11:25 16 07/11/19 11:22 87 98 07/11/19 11:17 90 98 07/11/19 11:16 83 112/65 07/11/19 11:12 91 H 99 07/11/19 11:07 93 H 99 07/11/19 11:02 87 99 07/11/19 11:01 81 16 119/62 07/11/19 10:57 36.8 C 90 18 99 07/11/19 10:52 94 H 96 07/11/19 10:47 92 H 98 07/11/19 10:46 85 103/57 L 07/11/19 10:42 90 95 07/11/19 10:37 90 98 07/11/19 10:32 83 98 07/11/19 10:30 90 115/56 L 07/11/19 10:27 95 H 97 07/11/19 10:23 89 94 07/11/19 10:22 87 95 07/11/19 10:17 88 95 07/11/19 10:15 89 116/53 L 07/11/19 10:12 88 96 07/11/19 10:07 82 98 07/11/19 10:02 85 97 07/11/19 10:00 78 113/54 L 07/11/19 09:57 77 98 07/11/19 09:52 84 97 07/11/19 09:47 86 98 07/11/19 09:46 83 16 114/53 L 07/11/19 09:42 85 98 07/11/19 09:37 85 99 07/11/19 09:32 95 H 98 07/11/19 09:27 94 H 98 07/11/19 09:26 87 126/63 07/11/19 09:22 94 H 97 07/11/19 09:17 93 H 96 07/11/19 09:16 92 H 16 120/52 L 07/11/19 09:12 86 121/62 97 07/11/19 09:08 81 126/58 L 07/11/19 09:07 77 98 07/11/19 09:02 88 98 07/11/19 09:00 88 18 116/56 L 07/11/19 08:58 84 18 127/59 L 07/11/19 08:57 88 98 07/11/19 08:56 86 121/56 L 07/11/19 08:55 36.9 C 18 07/11/19 08:53 85 18 115/57 L 07/11/19 08:52 79 99 07/11/19 08:48 87 18 104/53 L 07/11/19 08:47 77 97 07/11/19 08:46 78 18 112/55 L 07/11/19 08:44 84 18 119/58 L 07/11/19 08:42 80 98 07/11/19 08:37 89 98 07/11/19 08:34 93 H 18 123/59 L 07/11/19 08:32 100 H 18 147/74 H 99 07/11/19 08:27 107 H 99 07/11/19 08:22 97 H 100 07/11/19 08:17 88 99 07/11/19 08:12 90 98 07/11/19 08:07 85 99 07/11/19 08:02 86 98 07/11/19 07:57 97 H 99 07/11/19 07:48 88 98 07/11/19 07:47 93 H 18 122/64 07/11/19 07:43 84 99 07/11/19 07:38 84 99 07/11/19 07:33 96 H 98 07/11/19 07:32 93 H 123/69 07/11/19 07:15 36.8 C 18 07/11/19 05:48 86 118/65 07/11/19 05:30 36.5 C 18 07/11/19 04:48 85 114/62 07/11/19 03:47 91 H 124/59 L 07/11/19 03:10 36.9 C 18 07/11/19 01:47 96 H 108/58 L 07/11/19 00:47 36.8 C 89 18 119/60 07/10/19 23:09 36.8 C 86 18 118/56 L 07/10/19 23:06 36.8 C 86 18 118/56 L 07/10/19 19:37 114 H 111/63 07/10/19 19:15 36.8 C 07/10/19 17:40 36.8 C Transfer of Care Handoff Completed per policy Notes Mental Status: alert / awake / arousable Patient Amnestic to Procedure: Yes Nausea / Vomiting: adequately controlled Pain: adequately controlled Airway Patency, RR, SpO2: stable & adequate BP & HR: stable & adequate Hydration State: stable & adequate Neuraxial Anesthesia: was administered and sensory block is resolving Anesthetic Complications: no major complications apparent and Pt Satisfied with anesthetic care Notes: epidural catheter removed. Tip intact.
[2019-07-11] MEDS ORDERED: LACTATED RINGER'S 500 ML IV PRN (16:50)
[2019-07-11] MEDS ORDERED: NALOXONE HCL 0.08 MG in SYRINGE 1.8 ML IV PRN (16:50)
[2019-07-11] MEDS ORDERED: HYDROmorphone INJ 0.5 MG/0.5 ML SYR IV PRN (16:50)
[2019-07-11] MEDS ORDERED: MoRPHine SULFATE PF 1 MG/ML 10 ML AMP/VIAL INT SPINAL ONE (16:50)
[2019-07-11] MEDS ORDERED: NO NARCOTICS OR SEDATIVES SCH (17:00)
[2019-07-11] MEDS ORDERED: SODIUM CHLORIDE 0.9% 1000ML 1,000 ML IV SCH (17:00)
[2019-07-11] MEDS ORDERED: DC INTRASPINAL MORPHINE SCH (17:00)
[2019-07-11] MEDS ORDERED: MoRPHine SULFATE 2 MG/ML CARP IV PRN (17:02)
[2019-07-11] MEDS ORDERED: HYDROmorphone INJ 1 MG/ML SYRINGE IV STA (17:05)
[2019-07-11] MEDS ORDERED: HYDROmorphone INJ 1 MG/ML SYRINGE ONE (17:09)
[2019-07-11] MEDS: SIMETHICONE 80 MG CHEW PO SCH ×2 (17:32→20:32)
[2019-07-11] MEDS ORDERED: ACETAMINOPHEN 1,000 MG/100 ML VIAL IV STA (17:32)
[2019-07-11] MEDS ORDERED: OXYTOCIN 20 UNITS in LACTATED RINGER'S 1,000 ML IV SCH (18:30)
--- NOTE | 2019-07-11 20:04 | Operative Report ---
DATE OF OPERATION: 07/11/2019 PREOPERATIVE DIAGNOSIS: premature rupture of membranes and failure to progress. POSTOPERATIVE DIAGNOSES: premature rupture of membranes and failure to progress plus fibroid uterus. CLINICAL HISTORY: The patient is a 33-year-old female para 0-0-3-0, at 35 weeks and 2 days, admitted with premature rupture of membranes at 35 weeks. She had clear fluid. She was ruptured for greater than 30 hours and a section was called due to failure to progress. The patient had a floating vertex with the head not engaged and due to nonprogression and remaining at 1 cm, a decision was made to do a primary section. Consents were obtained. Timeout was called prior to the start of the procedure and the patient received 3 grams of Ancef prior to the incision. DESCRIPTION OF PROCEDURE: Under satisfactory epidural anesthesia, the patient was prepped and draped in usual sterile fashion. A low Pfannenstiel incision was made entering into the abdominal cavity in successive layers without difficulty. Upon entering into the peritoneal cavity, pickups with teeth and Metzenbaums were used to develop a bladder flap. This was gently sharply dissected down. A low segment transverse incision over the lower uterine segment was made. The incision was nicked. Amniotic fluid was clear. The incision was extended in the AP diameter with blunt dissection. The baby was delivered in the vertex presentation with the aid of fundal pressure. There was a nuchal cord x1 which was reduced at the time of delivery. The cord clamping was delayed for 1 minute and then cut, clamped and baby handed to labor relations worker. Apgars were 8 and 8, live female, 7 pounds 12 ounces. The uterus was then exteriorized. Ring forceps were then placed on both angles and another ring used to dilate the cervix. There was an approximate 7 cm fibroid on the uterus in the upper left cornual region. Otherwise, tubes, ovaries bilaterally were found to be within normal limits. Uterus was closed in double layer closure starting with 0 Vicryl suture in a continuous interlocking fashion followed by a second imbricating suture of 0 Vicryl suture. Contents of the pelvic cavity were then irrigated to clear. No active bleeding was noted. The initial sponge, needle and instrument count were found to be correct. Uterus was then placed in the normal anatomical position. The contents of the lower uterine segment were inspected, no active bleeding was noted. The fascia was then reapproximated from both angles using 0 Vicryl suture in a continuous fashion. Subcuticular space was irrigated. The subcuticular space was closed with 2-0 plain suture, followed by 4-0 Monocryl to close the skin. Steri-Strips were applied and an ABD dressing followed by the SHARIFA dressing. No active bleeding was noted. The estimated blood loss was approximately 400 mL. TOTAL FLUIDS: 1500 mL. URINE OUTPUT: 450 mL. The final sponge, needle and instrument counts being correct. The patient was then placed supine on a stretcher and taken to recovery room in stable condition. I attest to the content of the Intraoperative Record and any orders documented therein. Any exception s are noted below.
[2019-07-11] MEDS: DOCUSATE SODIUM 100 MG CAP PO SCH (20:32)
[2019-07-11] MEDS ORDERED: DOCUSATE SODIUM 100 MG CAP PO SCH (21:00)
[2019-07-12] MEDS ORDERED: HYDROmorphone INJ 1 MG/ML SYRINGE IV PRN (03:34)
[2019-07-12] MEDS ORDERED: CITRIC ACID/SODIUM CITRATE 15 ML UDC PO SCH (06:00)
[2019-07-12 06:55] LABS: Basophils # (auto) 0.01 K/uL (0-0.2); Basophils % (auto) 0.1 %; Eosinophils # (auto) 0.08 K/uL (0-0.5); Eosinophils % (auto) 0.7 %; Hematocrit (blood only) 29.1 % (37-47); Hemoglobin 9.8 g/dL (12.0-16.0); Immature Granulocytes # (auto) 0.05 K/uL (0.00-0.02); Immature Granulocytes % (auto) 0.4 %; Lymphocytes # (auto) 1.34 K/uL (1.2-3.4); Lymphocytes % (auto) 11.5 %; Mean Corpuscular Hgb Conc 33.7 g/dL (32-36); Mean Platelet Volume 10.4 fL (7.4-10.4); Monocytes # (auto) 0.92 K/uL (0.11-0.59); Monocytes % (auto) 7.9 %; Neutrophils # (auto) 9.21 K/uL (1.4-6.5); Neutrophils % (auto) 79.4 %; Platelet Count 126 K/uL (130-400); RDW Coefficient of Variation 13.5 % (11.5-14.5); RDW Standard Deviation 45.4 fL (36.4-46.3); Red Blood Count 3.13 M/uL (4.2-5.4); White Blood Count 11.61 K/uL (4.8-10.8)
--- NOTE | 2019-07-12 07:21 | Surgery Progress Note ---
Date of Service July 12, 2019 Subjective some pain noted passing gas Physical Exam Constitutional: WD/WN, vitals as above comfortable abdomen soft and non tender no edema neg Tania's will increase activity diet as tolerated Results & Data Vital Signs (Past 12 Hours) Vital Signs Temp Pulse Resp BP Pulse Ox 07/12/19 06:40 18 95 07/12/19 05:50 18 97 07/12/19 04:00 18 98 07/12/19 03:00 18 98 07/12/19 02:15 36.8 C 91 H 18 111/74 98 07/12/19 02:00 18 98 07/12/19 00:00 16 94 07/11/19 23:00 36.7 C 81 18 114/71 97 07/11/19 22:00 18 94 07/11/19 21:00 18 98 07/11/19 20:20 36.7 C 72 18 117/61 98 07/11/19 20:00 18 97 07/11/19 19:20 36.7 C 75 18 116/80 98
[2019-07-12] MEDS ORDERED: KETOROLAC 30 MG/ML VIAL IM PRN (07:23)
[2019-07-12] MEDS: FERROUS SULFATE 325 MG TAB PO SCH (08:52)
[2019-07-12] MEDS: DOCUSATE SODIUM 100 MG CAP PO SCH ×2 (08:52→20:33)
[2019-07-12] MEDS: SIMETHICONE 80 MG CHEW PO SCH ×4 (08:52→20:34)
[2019-07-12] MEDS: PRENATAL VITAMIN 1 TAB PO SCH (09:00)
[2019-07-12] MEDS ORDERED: [UNRECOGNIZED DRUG - OTHER] PO SCH (09:00)
--- NOTE | 2019-07-12 09:04 | Anesthesiology Progress Note ---
Date of Service July 12, 2019 Anesthesia Post Procedure Vital Signs Vital Signs: Temp Pulse Pulse Resp BP BP Pulse Ox 07/12/19 06:40 18 95 07/12/19 05:50 18 97 07/12/19 04:00 18 98 07/12/19 03:00 18 98 07/12/19 02:15 36.8 C 91 H 18 111/74 98 07/12/19 02:00 18 98 07/12/19 00:00 16 94 07/11/19 23:00 36.7 C 81 18 114/71 97 07/11/19 22:00 18 94 07/11/19 21:00 18 98 07/11/19 20:20 36.7 C 72 18 117/61 98 07/11/19 20:00 18 97 07/11/19 19:20 36.7 C 75 18 116/80 98 07/11/19 18:35 36.8 C 70 20 117/60 100 07/11/19 18:30 64 100 07/11/19 18:25 71 100 07/11/19 18:24 74 120/58 L 07/11/19 18:20 74 18 99 07/11/19 18:15 78 98 07/11/19 18:14 83 118/63 07/11/19 18:10 81 99 07/11/19 18:05 71 100 07/11/19 18:04 77 116/61 07/11/19 18:00 76 99 07/11/19 17:55 86 125/65 100 07/11/19 17:50 86 100 07/11/19 17:45 86 100 07/11/19 17:44 76 120/61 07/11/19 17:40 79 100 07/11/19 17:35 89 100 07/11/19 17:34 72 121/64 07/11/19 17:30 84 100 07/11/19 17:25 81 100 07/11/19 17:24 80 122/68 07/11/19 17:20 36.8 C 80 16 99 07/11/19 17:15 75 99 07/11/19 17:14 68 112/70 07/11/19 17:10 79 16 100 07/11/19 17:05 68 98 07/11/19 17:04 72 108/59 L 07/11/19 17:00 78 16 98 07/11/19 16:55 66 110/56 L 99 07/11/19 16:50 82 18 99 07/11/19 16:48 75 120/61 07/11/19 16:45 74 98 07/11/19 16:40 78 16 98 07/11/19 16:35 86 106/69 100 07/11/19 16:30 75 16 99 07/11/19 16:25 81 97 07/11/19 16:24 82 113/58 L 07/11/19 16:20 36.8 C 87 18 98 07/11/19 16:17 83 112/58 L 07/11/19 16:15 85 98 07/11/19 15:08 100 H 120/63 07/11/19 15:07 95 H 99 07/11/19 15:03 103 H 119/59 L 07/11/19 15:02 100 H 98 07/11/19 15:00 37.0 C 97 H 18 129/70 07/11/19 14:57 101 H 100 07/11/19 14:52 101 H 98 07/11/19 14:47 109 H 100 07/11/19 14:46 98 H 139/74 07/11/19 14:42 97 H 99 07/11/19 14:37 102 H 99 07/11/19 14:32 104 H 99 07/11/19 14:27 94 H 99 07/11/19 14:22 103 H 98 07/11/19 14:17 106 H 98 07/11/19 14:15 100 H 121/55 L 07/11/19 14:12 100 H 98 07/11/19 14:07 84 95 07/11/19 14:02 93 H 97 07/11/19 14:00 90 106/58 L 07/11/19 13:57 86 96 07/11/19 13:52 89 96 07/11/19 13:47 91 H 96 07/11/19 13:45 84 116/53 L 07/11/19 13:42 89 96 07/11/19 13:37 86 96 07/11/19 13:32 91 H 96 07/11/19 13:31 87 110/51 L 07/11/19 13:27 87 96 07/11/19 13:22 88 96 07/11/19 13:17 93 H 97 07/11/19 13:12 95 H 97 07/11/19 13:07 96 H 97 07/11/19 13:02 92 H 98 07/11/19 13:01 96 H 129/61 07/11/19 13:00 36.8 C 16 07/11/19 12:57 98 H 98 07/11/19 12:52 95 H 97 07/11/19 12:47 101 H 98 07/11/19 12:46 92 H 120/60 07/11/19 12:42 89 98 07/11/19 12:37 102 H 98 07/11/19 12:32 105 H 97 07/11/19 12:30 95 H 143/66 H 07/11/19 12:27 96 H 98 07/11/19 12:22 95 H 99 07/11/19 12:17 107 H 98 07/11/19 12:15 96 H 144/78 H 07/11/19 12:12 101 H 98 07/11/19 12:07 91 H 99 07/11/19 12:02 97 H 99 07/11/19 12:00 98 H 130/60 07/11/19 11:57 96 H 97 07/11/19 11:52 94 H 97 07/11/19 11:47 96 H 98 07/11/19 11:45 93 H 130/59 L 07/11/19 11:42 105 H 99 07/11/19 11:37 108 H 98 07/11/19 11:32 98 H 99 07/11/19 11:31 86 16 119/59 L 07/11/19 11:27 96 H 98 07/11/19 11:25 16 07/11/19 11:22 87 98 07/11/19 11:17 90 98 07/11/19 11:16 83 112/65 07/11/19 11:12 91 H 99 07/11/19 11:07 93 H 99 07/11/19 11:02 87 99 07/11/19 11:01 81 16 119/62 07/11/19 10:57 36.8 C 90 18 99 07/11/19 10:52 94 H 96 07/11/19 10:47 92 H 98 07/11/19 10:46 85 103/57 L 07/11/19 10:42 90 95 07/11/19 10:37 90 98 08/17/19 10:32 83 98 07/11/19 10:30 90 115/56 L 07/11/19 10:27 95 H 97 07/11/19 10:23 89 94 07/11/19 10:22 87 95 07/11/19 10:17 88 95 07/11/19 10:15 89 116/53 L 07/11/19 10:12 88 96 07/11/19 10:07 82 98 07/11/19 10:02 85 97 07/11/19 10:00 78 113/54 L 07/11/19 09:57 77 98 07/11/19 09:52 84 97 07/11/19 09:47 86 98 07/11/19 09:46 83 16 114/53 L 07/11/19 09:42 85 98 07/11/19 09:37 85 99 07/11/19 09:32 95 H 98 07/11/19 09:27 94 H 98 07/11/19 09:26 87 126/63 07/11/19 09:22 94 H 97 07/11/19 09:17 93 H 96 07/11/19 09:16 92 H 16 120/52 L 07/11/19 09:12 86 121/62 97 07/11/19 09:08 81 126/58 L 07/11/19 09:07 77 98 Pain Intensity Bilateral Lower Abdomen: Pain Intensity: 5 Transfer of Care Handoff Completed per policy Notes Mental Status: alert / awake / arousable Patient Amnestic to Procedure: Yes Nausea / Vomiting: adequately controlled Pain: adequately controlled Airway Patency, RR, SpO2: stable & adequate BP & HR: stable & adequate Hydration State: stable & adequate Anesthetic Complications: no major complications apparent and Pt Satisfied with anesthetic care
[2019-07-12] MEDS: OXYCODONE/ACETAMINOPHEN 5mg/325mg TAB PO PRN ×3 (12:41→20:34)
[2019-07-12] MEDS: ASCORBIC ACID 500 MG TAB PO SCH (12:41)
[2019-07-12] MEDS: IBUPROFEN 600 MG TAB PO PRN ×3 (12:42→20:34)
[2019-07-12] MEDS ORDERED: BISACODYL 5 MG TABEC PO SCH (20:00)
[2019-07-13] MEDS: IBUPROFEN 600 MG TAB PO PRN ×5 (05:01→21:09)
[2019-07-13] MEDS: OXYCODONE/ACETAMINOPHEN 5mg/325mg TAB PO PRN ×5 (05:01→21:08)
[2019-07-13 07:08] LABS: Hematocrit (blood only) 29.1 % (37-47); Hemoglobin 9.7 g/dL (12.0-16.0)
[2019-07-13] MEDS: FERROUS SULFATE 325 MG TAB PO SCH (08:58)
[2019-07-13] MEDS: PRENATAL VITAMIN 1 TAB PO SCH (08:58)
[2019-07-13] MEDS: DOCUSATE SODIUM 100 MG CAP PO SCH ×2 (08:58→21:08)
[2019-07-13] MEDS: SIMETHICONE 80 MG CHEW PO SCH ×4 (08:58→21:08)
--- NOTE | 2019-07-13 09:51 | Labor Progress Brief Note ---
Date of Service July 13, Subjective Review of Systems All systems reviewed & are unremarkable except as noted in HPI & below Assessment & Plan (1) delivery delivered: c/sec day #2 Pt doing well No complaints anticipate disch tomorrow Physical Exam Constitutional: WD/WN, vitals as above well developed and well nourished Eyes: PERRL, conjunctivae normal, anicteric sclerae Neck: trachea midline, no thyromegaly Respiratory: normal respiratory effort, lungs clear to auscultation Auscultation: no crackles, no rales and no wheezes Cardiovascular: RRR, no murmur, no edema Gastrointestinal (Abdomen): normal bowel sounds, soft, nontender, no hepatosplenomegaly Uterus is below umbilicus Musculoskeletal: no cyanosis or clubbing, extremities motor strength 5/5 Skin: no rashes, warm and dry Neurologic: patellar DTR's 2+ bilat, sensation intact Psychiatric: A+Ox3, euthymic affect Genitourinary: normal external appearance Results & Data Vital Signs (Past 12 Hours) Vital Signs Temp Pulse Resp BP Pulse Ox 07/13/19 07:20 36.6 C 88 18 119/76 97 07/12/19 22:55 36.6 C 82 16 117/73 98
[2019-07-13] MEDS ORDERED: BISACODYL 10 MG SUPP PR PRN (16:21)
[2019-07-14] MEDS: IBUPROFEN 600 MG TAB PO PRN ×3 (01:21→10:12)
[2019-07-14] MEDS: OXYCODONE/ACETAMINOPHEN 5mg/325mg TAB PO PRN ×3 (01:22→10:13)
--- NOTE | 2019-07-14 08:34 | Obstetrical Progress Note ---
Date of Service July 14, 2019 Subjective Patient is seen and examined. She feels well, no complaints. Pain is under control with oral meds. Ambulating without dizziness Voiding without difficulty Tolerating regular diet with out N&V Flatus + BM neg Bleeding is minimal No fever/ chills/ CP/ SOB/ N&V/ Leg pain Bottle feeding without problems Vital Signs Temp Pulse Resp BP Pulse Ox 07/14/19 07:39 36.6 C 87 18 123/75 98 07/14/19 00:45 36.5 C 88 20 120/77 99 07/13/19 16:00 36.6 C 98 H 18 118/71 99 07/13/19 12:45 36.7 C 90 20 123/72 99 Lab Results 07/10/19 07/10/19 07/10/19 Range/Units 13:07 13:15 13:17 WBC 13.77 H (4.8-10.8) K/uL RBC 3.68 L (4.2-5.4) M/uL Hgb 11.7 L (12.0-16.0) g/dL Hct 33.7 L (37-47) % MCV 91.6 (80-100) fL MCH 31.8 (25-34) pg MCHC 34.7 (32-36) g/dL RDW Std Deviation 44.5 (36.4-46.3) fL RDW Coeff of Evonne 13.4 (11.5-14.5) % Plt Count 166 (130-400) K/uL MPV 10.4 (7.4-10.4) fL Immature Gran % (Auto) % Neut % (Auto) % Lymph % (Auto) % Hardy % (Auto) % Eos % (Auto) % Baso % (Auto) % Immature Gran # (Auto) (0.00-0.02) K/uL Neut # (Auto) (1.4-6.5) K/uL Lymph # (Auto) (1.2-3.4) K/uL Hardy # (Auto) (0.11-0.59) K/uL Eos # (Auto) (0-0.5) K/uL Baso # (Auto) (0-0.2) K/uL POC Glucose 65 L* 65 L* (70-99) 07/10/19 07/10/1919 Range/Units 13:44 17:10 17:13 WBC (4.8-10.8) K/uL RBC (4.2-5.4) M/uL Hgb (12.0-16.0) g/dL Hct (37-47) % MCV (80-100) fL MCH (25-34) pg MCHC (32-36) g/dL RDW Std Deviation (36.4-46.3) fL RDW Coeff of Evonne (11.5-14.5) % Plt Count (130-400) K/uL MPV (7.4-10.4) fL Immature Gran % (Auto) % Neut % (Auto) % Lymph % (Auto) % Hardy % (Auto) % Eos % (Auto) % Baso % (Auto) % Immature Gran # (Auto) (0.00-0.02) K/uL Neut # (Auto) (1.4-6.5) K/uL Lymph # (Auto) (1.2-3.4) K/uL Hardy # (Auto) (0.11-0.59) K/uL Eos # (Auto) (0-0.5) K/uL Baso # (Auto) (0-0.2) K/uL POC Glucose 94 69 L* 76 (70-99) 07/10/19 07/11/19 07/12/19 Range/Units 23:22 14:44 06:24 WBC 13.98 H 11.61 H (4.8-10.8) K/uL RBC 3.37 L 3.13 L (4.2-5.4) M/uL Hgb 10.4 L 9.8 L (12.0-16.0) g/dL Hct 31.4 L 29.1 L (37-47) % MCV 93.2 93.0 (80-100) fL MCH 30.9 31.3 (25-34) pg MCHC 33.1 33.7 (32-36) g/dL RDW Std Deviation 45.8 45.4 (36.4-46.3) fL RDW Coeff of Evonne 13.5 13.5 (11.5-14.5) % Plt Count 150 126 L (130-400) K/uL MPV 10.3 10.4 (7.4-10.4) fL Immature Gran % (Auto) 0.5 0.4 % Neut % (Auto) 80.9 79.4 % Lymph % (Auto) 10.3 11.5 % Hardy % (Auto) 7.8 7.9 % Eos % (Auto) 0.4 0.7 % Baso % (Auto) 0.1 0.1 % Immature Gran # (Auto) 0.07 H 0.05 H (0.00-0.02) K/uL Neut # (Auto) 11.32 H 9.21 H (1.4-6.5) K/uL Lymph # (Auto) 1.44 1.34 (1.2-3.4) K/uL Hardy # (Auto) 1.09 H 0.92 H (0.11-0.59) K/uL Eos # (Auto) 0.05 0.08 (0-0.5) K/uL Baso # (Auto) 0.01 0.01 (0-0.2) K/uL POC Glucose 76 (70-99) 07/13/19 Range/Units 06:54 WBC (4.8-10.8) K/uL RBC (4.2-5.4) M/uL Hgb 9.7 L (12.0-16.0) g/dL Hct 29.1 L (37-47) % MCV (80-100) fL MCH (25-34) pg MCHC (32-36) g/dL RDW Std Deviation (36.4-46.3) fL RDW Coeff of Evonne (11.5-14.5) % Plt Count (130-400) K/uL MPV (7.4-10.4) fL Immature Gran % (Auto) % Neut % (Auto) % Lymph % (Auto) % Hardy % (Auto) % Eos % (Auto) % Baso % (Auto) % Immature Gran # (Auto) (0.00-0.02) K/uL Neut # (Auto) (1.4-6.5) K/uL Lymph # (Auto) (1.2-3.4) K/uL Hardy # (Auto) (0.11-0.59) K/uL Eos # (Auto) (0-0.5) K/uL Baso # (Auto) (0-0.2) K/uL POC Glucose (70-99) PE: General: Alert, orientedx3, NAD CVS: S1S2 RRR Lungs; CTAB Abd: soft, NT, ND, BS+, fundus firm, below Umbilicus Incision/ SHARIFA dressing: Clean, dry, intact Perineum intact, Lochia rubra minimal Ext; NT, 1+/1+ edema BL, neg Homans sign BL AP: 33 yo s/p C Section, pod# 3 VSS Afebrile doing well Continue routine postop care Encourage ambulation, PO intake All questions were answered Discussed when to call D/C home , f/u in office in 4 days for dressing removal Results & Data Vital Signs (Past 12 Hours) Vital Signs Temp Pulse Resp BP Pulse Ox 07/14/19 07:39 36.6 C 87 18 123/75 98 07/14/19 00:45 36.5 C 88 20 120/77 99
[2019-07-14] MEDS: SIMETHICONE 80 MG CHEW PO SCH (08:54)
[2019-07-14] MEDS: FERROUS SULFATE 325 MG TAB PO SCH (08:54)
[2019-07-14] MEDS: ASCORBIC ACID 500 MG TAB PO SCH (08:55)
[2019-07-14] MEDS: DOCUSATE SODIUM 100 MG CAP PO SCH (08:55)
[2019-07-14] MEDS: PRENATAL VITAMIN 1 TAB PO SCH (08:55)
--- NOTE | 2019-07-17 10:16 | Discharge Summary ---
DATE OF SURGERY: 07/11/2019. REASON FOR ADMISSION AND HOSPITAL COURSE: The patient is a 33-year-old female para 0-0-3-0, at 35 weeks and 2 days, admitted with premature rupture of membranes at 35 weeks. She had clear fluid on rupture, vertex was present. The patient was not engaged. She was induced with no change in her cervix beyond 1 cm with a head not engaged. was done under epidural anesthesia delivering a live , 8 and 8 Apgars, live female, 7 pounds 12 ounces. Hospital course was uncomplicated. The patient was discharged home in stable condition with regular diet on discharge. Discharge was on postop day #3, condition was stable. Medications include Motrin and Percocet for pain and followup will be in the office in 1 week for an incision check.
== END 2019-07-14 13:45 | disposition home or self-care (01) | DRG 788 ==
LOC: OPB 11:44 → 4S1 11:46 → 4S2 07-11 18:57